=== PATIENT | male | born 2000 | race Caucasian/White ===

== ENCOUNTER 2019-04-04 13:38 | Emergency (ER) | payer SELFPAY ==
[~2019-04-04] VITALS: Ht 167.6 cm; Wt 85.5 kg
[~2019-04-04 13:38] MED LIST: AMOX500C2 PO; BACL10TA PO; IBUP-1542 PO
[2019-04-04 13:43] VITALS: BP 175/91; PULSE 72; RESP 18; Ht 167.6 cm; Wt 85.5 kg
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
== END 2019-04-04 13:51 | disposition home or self-care (01) ==
LOC: E/R 13:38
DX: S50.312A Abrasion of left elbow, initial encounter (principal); S40.212A Abrasion of left shoulder, initial encounter; K02.9 Dental caries, unspecified; V00.148A Other scooter (nonmotorized) accident, initial encounter
CPT/HCPCS: 99282